=== PATIENT | male | born 1965 | race Two or more races ===

== ENCOUNTER → 2016-07-01 | Day surgery (SDC) | payer OTHER ==
[~2016-07-01] MED LIST: DEXAMETHASONE SOD PHOS 4 MG/ML VIAL ONE; EPINEPHrine HCL (1:1000) 1 MG/ML VIAL ONE; LACTATED RINGER'S 1000 ML INJ 1,000 ML ONE; MIDAZOLAM HCL 2 MG/2 ML VIAL ONE; MOXIFLOXACIN 0.5% OPHT SOLN 3 ML BTL ONE; ONDANSETRON HCL 4 MG/2 ML VIAL IV PUSH ONE; PHENYLEPHRINE HCL 10% OPTH SOLN 5 ML BTL ONE; PROPOFOL 100 MG/10 ML INJ IV ONE; SODIUM CHLORIDE 0.9% INJ 10 ML ONE; TETRACAINE 0.5% OPTH SOLN 4 ML BTL ONE; TOBRAMYCIN/DEXAMETHASONE OPTH OINT 3.5 GM TUBE ONE; TRIAMCINOLONE ACETONIDE 40 MG/ML VIAL ONE; ceFAZolin INJ 1,000 MG VIAL ONE; prednisoLONE ACETATE 1% OPHT SUSP 5 ML BTL ONE
--- NOTE | 2016-07-03 12:57 | MP ---
cc: MOI MICHAELS MD DATE OF SURGERY 07/03/2016 PREOPERATIVE DIAGNOSIS Proliferative diabetic retinopathy, tractional retinal detachment left eye. POSTOPERATIVE DIAGNOSIS Proliferative diabetic retinopathy, tractional retinal detachment left eye. PROCEDURE Pars plana vitrectomy, tractional retinal detachment tear, endolaser, air-fluid exchange, insertion of 16% SF6 gas left eye. COMPLICATIONS None BLOOD LOSS Less than [address] Yates general INDICATIONS FOR THE PROCEDURE This is a delightful patient with severe diabetic retinopathy and was found to have a tractional retinal detachment and vitreous hemorrhage in his left eye. The patient elected for surgical correction. PROCEDURE NOTE After informed consent was obtained, the patient brought to the operating room and general anesthesia was established. The left eye was prepped and draped in a sterile fashion with Betadine in the conjunctival fornix. A three port pars plana vitrectomy was established with a self-retaining infusion cannula. Core vitreous was evacuated. The tractional complexes were circumscribed with the vitrector. The tractional complexes were delaminated with curved scissors. The retina had renewed mobility. An air-fluid exchange was carried out and endolaser was applied in a PRP fashion and in areas of dissection. 16% SF6 gas was instilled. Scleral depressed examination revealed no untreated retinal holes, tears or detachments. Trocars were removed and sclerotomies closed. A subconjunctival injection of Ancef and dexamethasone were given. The eye was patched with Tobramycin ointment. The patient was brought to the recovery room in stable condition and continue followup with [facility] for his postoperative care. MD CRISS Mary/IRAIS /8:27 AM /12:37 PM
== END | disposition home or self-care (01) ==
LOC: ESDC 06:11
PROVIDERS: ATTEND Ophthalmology
DX: E11.3522 Type 2 diabetes mellitus with proliferative diabetic retinopathy with traction retinal detachment involving the macula, left eye (principal); H43.12 Vitreous hemorrhage, left eye
CPT/HCPCS: 00145; 67108; 82948; J0171; J0690; J1100; J2250; J2405; J3010; J7120; J3301